=== PATIENT | male | born 1980 | race Two or more races ===

== ENCOUNTER 2021-09-25 23:11 | Emergency (ER) | payer SELFPAY ==
[~2021-09-25] VITALS: Ht 172.7 cm; Wt 81.0 kg
[2021-09-25] MEDS ORDERED: ASPIRIN 81MG TABLET PO ONE (23:30)
[2021-09-26 01:14] LABS: *AMPHETAMINES SCREEN URINE NEGATIVE (NEGATIVE); *BARBITURATES SCREEN URINE NEGATIVE (NEGATIVE); *BENZODIAZEPINES SCREEN URINE NEGATIVE (NEGATIVE); *COCAINE SCREEN URINE NEGATIVE (NEGATIVE)
[2021-09-26 01:15] LABS: CANNABINOID URINE SCREEN NEGATIVE (NEGATIVE); METHADONE URINE SCREEN NEGATIVE (NEGATIVE); OPIATES URINE SCREEN NEGATIVE (NEGATIVE); PHENCYCLIDINE URINE SCREEN NEGATIVE (NEGATIVE)
[2021-09-26 03:54] VITALS: BP 148/92
== END 2021-09-26 03:55 | disposition left against medical advice (07) ==
LOC: ER 23:11
DX: R55 Syncope and collapse (principal)
CPT/HCPCS: 71045; 80305; 82962; 87426; 93005; 99285